=== PATIENT | female | born 1990 | race Two or more races ===

== ENCOUNTER 2025-03-20 06:40 | Emergency (ER) | payer BC ==
[~2025-03-20] VITALS: Ht 152.4 cm; Wt 59.0 kg
[2025-03-20 07:26] LABS: PLATELET COUNT (AUTO) 271 K/uL (150-450); RED BLOOD CELL COUNT(AUTO) 3.77 MIL/uL (4.0-5.2); RED CELL DISTRIBUTION WIDTH 12.4 % (11.5-15.0); WHITE BLOOD COUNT (AUTO) 5.6 K/uL (4.3-11.0)
[2025-03-20 07:51] LABS: PREGNANCY TEST URINE QUAL POSITIVE (NEGATIVE)
[2025-03-20 08:18] VITALS: BP 130/80; TEMP 98.5; O2SAT 99
== END 2025-03-20 08:18 | disposition home or self-care (01) ==
LOC: ER 06:51
DX: O03.9 Complete or unspecified spontaneous abortion without complication (principal); R10.2 Pelvic and perineal pain; Z3A.01 Less than 8 weeks gestation of pregnancy
CPT/HCPCS: 36415; 76856-TC; 84702-TC; 84703-TC; 85025-TC